=== PATIENT | female | born 1960 | race Caucasian/White ===

== ENCOUNTER 2016-09-09 10:04 | Emergency (ER) | payer SELFPAY ==
[~2016-09-09] VITALS: Ht 157.5 cm; Wt 72.5 kg
[2016-09-09 10:06] VITALS: BP 167/77; PULSE 57; RESP 12; TEMP 97.3; O2SAT 97
[2016-09-09] MEDS ORDERED: MORPHINE SULFATE 4 MG/ML INJ IM ONE (11:00)
--- NOTE | 2016-09-09 11:03 | PD ---
HPI Chief Complaint: Fall Time Seen by Provider: 11:01 Travel History International Travel<30 days: No Contact w/Intl Traveler<30days: No Traveled to known affect area: No History of Present Illness HPI Patient is a 56-year-old female presenting with left hand pain. It 30 a.m. is when she was walking outside when she tripped and suffered a fall on outstretched left hand. Pain is in the second third MTP and metacarpals with swelling. She denies weakness or paresthesia. Does have some pain over the dorsum of the hand that radiates down to the distal radial side of the forearm. He denies any wrist pain or loss of range of motion. She can move all fingers but it hurts when she does so. She denies any pain in her elbow. She is a head or lose consciousness. She took ibuprofen which helped somewhat. She also felt her knees and has a small abrasion on the right knee. She denies any pain in the knee, loss of range of motion or inability to bear weight. Last tetanus vaccine greater than 5 years. She is Iranian only speaking, history and physical was obtained with help of Richa Conklin [employer] defense [employer]. [facility] Social History Tobacco Use: No Allergies-Medications (Allergen,Severity, Reaction): Coded Allergies: No Known Allergies (Unverified , 09/09/16) Reported Meds & Prescriptions Reported Meds & Active Scripts Active Naproxen 500 Mg Tab 500 Mg PO BID Review of Systems HENT: No: Headaches, Lightheadedness Musculoskeletal: Positive: Other (see the history of present illness) Skin: Positive Other (abrasion right knee) Neurologic: No: Weakness, Syncope, Focal Abnormalities, Paresthesia, Sensory Disturbance Physical Exam Narrative GENERAL: Well-developed and well-nourished adult female in no acute distress. SKIN: Very superficial nonbleeding abrasion of the right knee. Warm and dry. Good turgor without tenting. HEAD: Normocephalic and atraumatic. EYES: PERRL bilaterally, 5mm. EOMI bilaterally. No injection or icterus present. No proptosis. Lids without edema or erythema. NECK: Supple, no midline tenderness, crepitus or step-offs. Trachea midline, no JVD. No cervical or facial lymphadenopathy. CARDIOVASCULAR: Regular rate and rhythm without murmurs, rubs, clicks or gallops. Radial and posterior tibial pulses 2+ bilaterally. No pedal edema. RESPIRATORY: Clear to auscultation bilaterally with symmetrical rise and fall, no distress or use of accessory muscles. MUSCULOSKELETAL: Patient has some edema and moderate ecchymosis to the dorsal aspect of the second and third MTP joints. She is diffusely tender in this area and a problem the mid to distal metacarpals. No pain to palpation of her fingers. No pain with palpation of the left wrist. No snuffbox tenderness. Normal range of motion of left wrist and left elbow. She can move all the fingers of the left hand. There is no edema or point tenderness to the bilateral knees. Patient normal range of motion in the knees. No gait disturbances. Patient freely moving all four extremities spontaneously. Extremities without clubbing, cyanosis, or edema. No obvious deformities. NEUROLOGIC: CN II-XII grossly intact. Awake and alert. Strength 5/5 bilateral wrist flexion, wrist extension. She can flex and extend all 5 fingers of the left hand. Sensation intact to the distal tip of all 5 fingers of left hand. Normal speech. PSYCHIATRIC: Appropriate mood and affect; insight and judgment normal. Data Data Last Documented VS Vital Signs Date Time Temp Pulse Resp B/P Pulse Ox O2 Delivery O2 Flow Rate FiO2 09/09/16 10:06 97.3 57 12 167/77 97 Room Air Orders Morphine Inj (Morphine Inj) (09/09/16 11:00) Hand, Complete ([id number]) (09/09/16 11:00) Ice/Cold Pack (09/09/16 11:00) Tetanus/Diphtheria Tox Adult (Tetanus/Di (09/09/16 11:15) Splint Or Brace Apply/Monitor (09/09/16 12:39) [facility] Medical Decision Making Medical Screen Exam Complete: Yes Emergency Medical Condition: Yes Interpretation(s) Last 24 hours Impressions Hand X-Ray 09/09/16 1100 Signed Impressions: Service Date/Time: August 11:22 - CONCLUSION: 1. No acute osseous injury. 2. Possible osseous cyst in the lunate. Saul Dominguez MD Differential Diagnosis Metacarpal fracture versus MTP fracture versus contusion versus sprain Narrative Course Patient is a 56-year-old female who suffered a fall on outstretched left hand earlier this morning. She has some edema and discoloration point tetanus to the second and third metacarpals of the left hand as well as MTP joints. She is neurovascularly intact. She can move all of her fingers but it is painful to do so. She also abraded her right knee, tetanus updated today. Patient was given morphine and ice and perform x-ray which is negative for fracture dislocation. There are some areas of question on the distal radius that look like a cyst there are some stippled density seen on 1 view only that are likely artifactual. As patient has no pain in this area is not related to the fall. She is diagnosed with a wrist sprain and finger sprain and we will place in Velcro wrist splint and splint her fingers as well. Patient will be given prescription for naproxen.See discharge paperwork for further instructions. The plan was discussed with the patient who acknowledged their understanding and agreement. Reinforced the follow-up with primary care is critically important. Patient instructed on emergent conditions that should prompt return to ED. Diagnosis Primary Impression: Wrist sprain Qualified Code: S63.502A - Wrist sprain, left, initial encounter Additional Impression: Finger sprain Qualified Code: S63.619A - Sprain of finger, unspecified finger, unspecified laterality, unspecified site of finger, initial encounter Patient Instructions: Finger Sprain (ED), General Instructions, Wrist Sprain ( ED) Departure Forms: Tests/Procedures, Work Release Enter return to work date: Sep 13, 2016 Additional Instructions: Take medications as prescribed Apply ice every 1 to 2 hours as needed for pain Avoid maneuvers that aggravate pain Keep DOROTHEA bandage and wrist splint on while being active or using extremity Elevate when at rest Be aware that may take several weeks for sprains to heal fully Follow-up with PCP in 2-3 days Return to the ED for any acute worsening of symptoms Med/Other Pt SpecificInfo: Prescription(s) given Scripts Naproxen 500 Mg [id number] Mg PO BID #10 TAB Prov:Nura Rios MD 09/09/16 Disposition: 01 DISCHARGE HOME Condition: Stable Dieter Larkin III Sep 09, 2016 11:03
[2016-09-09] MEDS ORDERED: TETANUS/DIPHTHERIA TOXOID ADULT 0.5 ML VIAL IM ONE (11:15)
--- NOTE | 2016-09-09 12:32 | RADRPT ---
EXAM DATE/TIME: 09/09/2016 11:22 [facility] COMPARISON: No previous studies available for comparison. INDICATIONS : Left hand pain after fall. MEDICAL HISTORY : None. SURGICAL HISTORY : None. ENCOUNTER: Initial ACUITY: 1 day PAIN SCORE: 10/10 LOCATION: Left middle hand. FINDINGS: Three view examination of the left hand demonstrates no soft tissue swelling, dislocation, or fractur e. Stippled densities in the soft tissues adjacent to the distal radius are only seen on the PA pro jection and are probably artifactual. The carpal bones appear intact. Well-corticated lucency in the radial side of the lunate may represent a benign osseous cyst The interphalangeal and metacarpophala ngeal joints are intact. Bony mineralization is normal. CONCLUSION: 1. No acute osseous injury. 2. Possible osseous cyst in the lunate. Saul Dominguez MD on September 09, 2016 at 12:27 Board Certified Radiologist. This report was verified electronically.
[2016-09-09] MEDS ORDERED: NAPR500T PO (12:41)
== END 2016-09-09 13:55 | disposition home or self-care (01) ==
LOC: NEPB 10:04
DX: S63.502A Unspecified sprain of left wrist, initial encounter (principal); S63.619A Unspecified sprain of unspecified finger, initial encounter; S80.211A Abrasion, right knee, initial encounter; Z23 Encounter for immunization; W01.0XXA Fall on same level from slipping, tripping and stumbling without subsequent striking against object, initial encounter
CPT/HCPCS: 73130; 90471; 90714; 96372; 99283; J2270; L3908